=== PATIENT | male | born 1955 | race Caucasian/White ===

== ENCOUNTER → 2018-11-23 | Outpatient (CLI) | payer BC ==
--- NOTE | 2018-11-24 03:05 | MR ---
EXAMINATION TYPE: MR lumbar spine wo con DATE OF EXAM: 11/23/2018 COMPARISON: None HISTORY: Pain in right hip / Low back pain, limited movement TECHNIQUE: Multiplanar, multisequence images of the lumbar spine were acquired. Lumbar vertebra have normal alignment. Disc spaces are fairly normal. There is no compression fractur e. Lumbar nerve roots appear normal. The neuroforamina are fairly well-maintained for the patient's a ge. There is no spinal stenosis. There is no lumbar paraspinal mass. There is no evidence of focal johann ny destructive process. IMPRESSION: Negative exam. Lumbar spine appears fairly normal for age.
--- NOTE | 2018-11-24 03:26 | MR ---
EXAMINATION TYPE: MR hip RT wo con DATE OF EXAM: 11/23/2018 COMPARISON: None HISTORY: Pain in right hip / Low back pain, limited movement Standard multiplanar, multisequence MRI departmental protocol Multiplanar, multisequence images of the right hip were acquired. FINDINGS: The proximal femurs are intact. There is no sign of hip dysplasia. Hip joint spaces are patrizia rly symmetric and appear normal. The acetabula appear intact. I see no bony destructive process. Syno vial fluid appears within normal limits. There is no evidence of a pelvic mass. There is no free flui d in the pelvis. There is a 2 x 1 cm area of fluid signal posterior to the greater trochanter of the right femur. I se e no fracture line. There is no evidence of any significant edema and leg femur. There is no evidence of avascular necrosis. IMPRESSION: No fracture seen. Soft tissue fluid adjacent to the greater trochanter posteriorly consistent with tr ochanteric bursitis.
== END | disposition home or self-care (01) ==
LOC: RADMRIMAIN 16:01
PROVIDERS: ATTEND Physician Assistant Medical
DX: M54.5 Low back pain (principal); M25.551 Pain in right hip
CPT/HCPCS: 72148

== ENCOUNTER → 2020-09-18 | Outpatient (CLI) | payer BC ==
--- NOTE | 2020-09-20 16:35 | XR ---
EXAMINATION TYPE: XR cervical spine comp DATE OF EXAM: 09/18/2020 COMPARISON: None HISTORY: 65-year-old male [id number], [id number] CERV RADICULOPATHY, LT ARM PAIN AND NUMBNESS TECHNIQUE: 5 views FINDINGS: Normal odontoid view. Hypertrophic uncovertebral joint and facet arthropathy mid to lower cervical sp ine. On the left, changes result in moderate to severe bony neural foraminal narrowing C6-C7 and moderate at C3-C4. Mild C5-C6 and C7-T1. On the right, changes result in moderate bony neural foraminal narrowing C5-C6 and C6-C7. No predental space widening or prevertebral soft tissue swelling. Moderate disc/endplate degenerative change C5-C6 and C6-C7. Trace grade 1 retrolisthesis C3-C4 and C5-C6. Remaining alignment is maintained. IMPRESSION: 1. Moderate spondylotic change mid to lower cervical spine. Degenerative trace grade 1 retrolisthesis C3-C4 and C5-C6. 2. Changes result in moderate to severe bony neural foraminal narrowing on the left at C6-C7. Additio nal moderate bilateral neuroforaminal narrowing as outlined above.
== END | disposition home or self-care (01) ==
LOC: RADXRYALE 14:15
PROVIDERS: ATTEND Physician Assistant Medical
DX: M50.123 Cervical disc disorder at C6-C7 level with radiculopathy (principal); M47.22 Other spondylosis with radiculopathy, cervical region; M43.12 Spondylolisthesis, cervical region; M99.71 Connective tissue and disc stenosis of intervertebral foramina of cervical region
CPT/HCPCS: 72050

== ENCOUNTER 2023-11-25 19:40 | Emergency (ER) | payer BC ==
[2023-11-25 19:45] VITALS: RESP 18; TEMP 98.2
--- NOTE | 2023-11-25 20:01 | ED ---
Lower Extremity Injury HPI - General Chief Complaint: Extremity Injury, Lower Stated Complaint: R leg wound Time Seen by Provider: 11/25/23 19:44 Source: patient, RN notes reviewed Mode of arrival: ambulatory - History of Present Illness Initial Comments: 68-year-old male presenting with cut on right leg prior to arrival. States he was walking down to the basement holding a vice, when his leg slipped and the vice hit him in the right lower leg. Denies other injuries. Denies blood thinners. He is able to weight-bear with no issues. - Related Data Home Medications Medication Instructions Recorded Confirmed lisinopriL [Zestril] 10 mg PO DAILY 12/30/13 05/11/15 Previous Rx's Medication Instructions Recorded Cephalexin [Keflex] 500 mg PO Q12HR 5 Days #10 cap 11/25/23 Allergies Allergy/AdvReac Type Severity Reaction Status Date / Time No Known Allergies Allergy Verified 11/25/23 19:45 Review of Systems ROS Statement: Those systems with pertinent positive or pertinent negative responses have been documented in the HPI. ROS Other: All systems not noted in ROS Statement are negative. Past Medical History Past Medical History: Hypertension History of Any Multi-Drug Resistant Organisms: None Reported Past Surgical History: Orthopedic Surgery Additional Past Surgical History / Comment(s): reconstructive left hand surgeries Past Anesthesia/Blood Transfusion Reactions: No Reported Reaction Past Psychological History: No Psychological Hx Reported Smoking Status: Never smoker Past Alcohol Use History: Occasional Past Drug Use History: None Reported - Past Family History Mother Family Medical History: No Reported History General Exam General appearance: alert, in no apparent distress Head exam: Present: atraumatic, normocephalic, normal inspection Right Knee exam: Present: normal inspection, full ROM. Absent: tenderness, swelling Lower Leg exam: Present: full ROM. Absent: normal inspection (There is a 9 cm deep laceration on right lower leg with exposed tendon. Full sensation distal to injury, full range of motion of ankle, full DP pulses), tenderness, swelling Ankle exam: Present: normal inspection, full ROM. Absent: tenderness, swelling Foot/Toe exam: Present: normal inspection, full ROM. Absent: tenderness, swelling Neurovascular tendon exam: Present: no vascular compromise. Absent: pulse deficit, abnormal cap refill, motor deficit, sensory deficit Neurological exam: Present: alert, oriented X3 Psychiatric exam: Present: normal affect, normal mood Skin exam: Present: warm, dry, intact, normal color. Absent: rash Course Vital Signs 11/25/23 11/25/23 19:41 21:47 Temperature 98.2 F Pulse Rate 78 76 Respiratory 18 18 Rate Blood Pressure 174/86 162/100 O2 Sat by Pulse 96 98 Oximetry Procedures - Laceration Laceration #1 Consent Obtained: verbal consent Indication: laceration Site: lower extremity Size (cm): 9 Description: linear Depth: simple, single layer, involves muscle layer Anesthetic Used: lidocaine 1%, without epi Anesthesia Technique: local infiltration Amount (mls): 5 Pre-repair: wound explored, irrigated extensively, deep structures intact Type of Sutures: nylon Size of Sutures: 4-0 Number of Sutures: 8 Technique: simple, interrupted Patient Tolerated Procedure: well, no complications Additional Comments: Neurovascularly intact status post procedure Medical Decision Making - Medical Decision Making Was pt. sent in by a medical professional or institution (, PA, MANAGER PROPOSAL, urgent care, hospital, or half-way...) When possible be specific @ -No Did you speak to anyone other than the patient for history (EMS, parent, family, police, friend...)? What history was obtained from this source @ -No Did you review nursing and triage notes (agree or disagree)? Why? @ -I reviewed and agree with nursing and triage notes Were old charts reviewed (outside hosp., previous admission, EMS record, old EKG, old radiological studies, urgent care reports/EKG's, half-way records)? Report findings @ -No old charts were reviewed Differential Diagnosis (chest pain, altered mental status, abdominal pain women, abdominal pain men, vaginal bleeding, weakness, fever, dyspnea, syncope, headache, dizziness, GI bleed, back pain, seizure, CVA, palpatations, mental health, musculoskeletal)? @ -Differential Musculoskeletal Muscular strain, contusion, ligament sprain, fracture, arthritis, septic arthritis, bursitis, cellulitis, muscle spasm, nerve compression, DVT, arterial occlusion, herpes zoster, electrolyte abnormality, tumor.... This is not meant to be in all inclusive list EKG interpreted by me (3pts min.). @ -None X-rays interpreted by me (1pt min.). @ -X-ray reveals no acute process or foreign body CT interpreted by me (1pt min.). @ -None done U/S interpreted by me (1pt. min.). @ -None done What testing was considered but not performed or refused? (CT, X-rays, U/S, labs)? Why? @ -None What meds were considered but not given or refused? Why? @ -None Did you discuss the management of the patient with other professionals (professionals i.e. Dr., PA, MANAGER PROPOSAL, lab, RT, psych nurse, floorworker lasting, combiner, teacher, weapons officer naval activity, major case detective)? Give summary @ -No Was smoking cessation discussed for >3mins.? @ -No Was critical care preformed (if so, how long)? @ -No Were there social determinants of health that impacted care today? How? (Homelessness, low income, unemployed, alcoholism, drug addiction, transportation, low edu. Level, literacy, decrease access to med. care, nursing home, rehab)? @ -No Was there de-escalation of care discussed even if they declined (Discuss DNR or withdrawal of care, Hospice)? DNR status @ -No What co-morbidities impacted this encounter? (DM, HTN, Smoking, COPD, CAD, Cancer, CVA, ARF, Chemo, Hep., AIDS, mental health diagnosis, sleep apnea, morbid obesity)? @ -None Was patient admitted / discharged? Hospital course, mention meds given and route, prescriptions, significant lab abnormalities, going to OR and other pertinent info. @ -Discharged. This is a 68-year-old male presenting with right leg laceration prior to arrival. Denies blood thinners. Neurovascularly intact. Tetanus was updated. X-ray reveals no acute osseous abnormality or foreign body. Wound was thoroughly irrigated. 8 sutures placed with no complications. Advised to follow-up in 7 days for suture removal. Prescribed Keflex for antibacterial prophylaxis. Supportive care discussed as well as return precautions and patient is agreeable to plan. Case was discussed with my ED attending Dr. Taylor. Patient discharged in stable condition. Undiagnosed new problem with uncertain prognosis? @ -No Drug Therapy requiring intensive monitoring for toxicity (Heparin, Nitro, Insulin, Cardizem)? @ -No Were any procedures done? @ -Yes, 8 sutures placed Diagnosis/symptom? @ -Laceration of right lower leg Acute, or Chronic, or Acute on Chronic? @ -Acute Uncomplicated (without systemic symptoms) or Complicated (systemic symptoms)? @ -Uncomplicated Side effects of treatment? @ -No Exacerbation, Progression, or Severe Exacerbation? @ -No Poses a threat to life or bodily function? How? (Chest pain, [place], NH, pneumonia, PE, COPD, DKA, ARF, appy, cholecystitis, CVA, Diverticulitis, Homicidal, Suicidal, threat to staff... and all critical care pts) @ -No Disposition Clinical Impression: Laceration of right lower leg Disposition: HOME SELF-CARE Condition: Stable Instructions (If sedation given, give patient instructions): Laceration (ED) Additional Instructions: Follow-up in 7 days for suture removal. Take Keflex twice daily for 5 days for antibacterial prophylaxis. Keep wound dry for 24 hours, then you may gently wash wound with antibacterial soap and water. Please return to the Emergency Department if symptoms worsen or any other concerns. Prescriptions: Cephalexin [Keflex] 500 mg PO Q12HR 5 Days #10 cap Is patient prescribed a controlled substance at d/c from ED?: No Referrals: Rosa Rodriguez PAC [REFERRING] - 1-2 days Time of Disposition: 23:13
[2023-11-25] MEDS: DIPH,PERTUS(ACELL)TETVAC-LF 0.5 ML VIAL IM ONE (20:28)
[2023-11-25] MEDS: LIDOCAINE 1% INJ 10MG/ML (20 ML MDV) SQ ONE (20:28)
--- NOTE | 2023-11-25 20:45 | XR ---
EXAMINATION TYPE: XR tibia fibula RT DATE OF EXAM: 11/25/2023 COMPARISON: None HISTORY: Right leg laceration TECHNIQUE: 2 view right tibia and fibula FINDINGS: No acute fracture or dislocation evident. No radiopaque foreign bodies are evident. Soft ti ssue injuries along the distal medial foreleg. No adjacent osseous abnormality is evident. Follow-up can be performed as clinically indicated. IMPRESSION: 1. No acute osseous abnormality or foreign body right lower extremity [facility] Matt Porras, Workstation: [facility], 11/25/2023 8:43 PM
[2023-11-25 23:30] VITALS: BP 186/97; PULSE 84
== END 2023-11-25 23:40 | disposition home or self-care (01) ==
LOC: EC 19:40
CPT/HCPCS: 12004; 90471; 90715; 99283